=== PATIENT | male | born 1990 | race African-American/Black ===

== ENCOUNTER 2017-03-03 22:03 | Emergency (ER) | payer OTHER, MEDICAID ==
[2017-03-03 23:24] VITALS: BP 130/99
== END 2017-03-03 23:24 | disposition home or self-care (01) ==
LOC: ED 22:03
DX: Z00.00 Encounter for general adult medical examination without abnormal findings (principal); F31.9 Bipolar disorder, unspecified; F20.9 Schizophrenia, unspecified; Z88.8 Allergy status to other drugs, medicaments and biological substances

== ENCOUNTER 2017-03-12 19:29 | Emergency (ER) | payer OTHER, MEDICAID ==
[~2017-03-12] VITALS: Ht 177.8 cm; Wt 56.7 kg
[2017-03-12 19:45] VITALS: Ht 177.8 cm; Wt 56.7 kg
[2017-03-12 20:50] VITALS: BP 115/64
== END 2017-03-12 20:50 | disposition home or self-care (01) ==
LOC: ED 19:29
DX: J06.9 Acute upper respiratory infection, unspecified (principal); J02.9 Acute pharyngitis, unspecified; R07.89 Other chest pain; F20.9 Schizophrenia, unspecified; F31.9 Bipolar disorder, unspecified; Z88.2 Allergy status to sulfonamides; Z88.8 Allergy status to other drugs, medicaments and biological substances